=== PATIENT | female | born 1995 | race Caucasian/White ===

== ENCOUNTER 2017-12-14 20:08 | Emergency (ER) | payer OTHER | END 2017-12-15 01:02 | disposition home or self-care (01) | LOC: FTE 12-15 01:02 | DX: S82.434A Nondisplaced oblique fracture of shaft of right fibula, initial encounter for closed fracture (principal); S90.01XA Contusion of right ankle, initial encounter; J45.909 Unspecified asthma, uncomplicated; X58.XXXA Exposure to other specified factors, initial encounter; Y92.9 Unspecified place or not applicable | CPT/HCPCS: 29515; 73610-RT; 99283-25 ==

== ENCOUNTER 2018-09-27 05:38 | Day surgery (SDC) | payer OTHER ==
[2018-09-27] MEDS ORDERED: POLYMYXIN/BACITRACIN 1L IRRIG (07:12)
[2018-09-27] MEDS ORDERED: NEOMYC/POLYMYX/BACIT 30 GM OINT (07:12)
[2018-09-27] MEDS ORDERED: ROPIVACAINE 0.5 % 30 ML VIAL ×2 (07:12→10:43)
[2018-09-27] MEDS ORDERED: ROCURONIUM 50 MG INJ (07:25)
[2018-09-27] MEDS ORDERED: MEPERIDINE 100 MG INJ (07:25)
[2018-09-27] MEDS ORDERED: LIDOCAINE 2% (SDV) 5 ML INJ (07:25)
[2018-09-27] MEDS ORDERED: MIDAZOLAM 1 MG/ML 2 ML INJ (07:25)
[2018-09-27] MEDS ORDERED: PROPOFOL 200 MG INJ (07:25)
[2018-09-27] MEDS ORDERED: CEFAZOLIN 1 GM INJ (07:25)
[2018-09-27] MEDS ORDERED: METOCLOPRAMIDE 10 MG INJ (07:25)
[2018-09-27] MEDS ORDERED: SUCCINYLCHOLINE CHLORIDE 100 MG/5 ML SYG IV (07:25)
[2018-09-27] MEDS ORDERED: ONDANSETRON 4 MG INJ (07:25)
[2018-09-27] MEDS ORDERED: LACTATED RINGER'S 1,000 ML IV (07:30)
[2018-09-27] MEDS ORDERED: MEPERIDINE 25 MG INJ IV (09:30)
[2018-09-27] MEDS ORDERED: MIDAZOLAM 1 MG/ML 2 ML INJ IV (09:30)
[2018-09-27] MEDS ORDERED: DIPHENHYDRAMINE 50 MG INJ IV (09:30)
[2018-09-27] MEDS ORDERED: METOCLOPRAMIDE 10 MG INJ IV (09:30)
[2018-09-27] MEDS ORDERED: HYDROmorphONE 1 MG/5 ML IV SYRINGE IV ×3 (09:30)
[2018-09-27] MEDS ORDERED: ONDANSETRON 4 MG INJ IV (09:30)
[2018-09-27] MEDS ORDERED: OXYCODONE/ACETAMINOPHEN (5/325) TAB PO ×2 (09:30)
[2018-09-27] MEDS ORDERED: THROMBIN 5000 UNIT VIAL (09:59)
[2018-09-27] MEDS ORDERED: CA CHLORIDE 10% 10 ML SYRINGE (09:59)
[2018-09-27] MEDS: NEOMYC/POLYMYX/BACIT 30 GM OINT TOP (10:33)
[2018-09-27] MEDS: POLYMYXIN/BACITRACIN 1L IRRIG IRR (10:33)
[2018-09-27] MEDS: morphine 2 MG INJ IV (11:16)
[2018-09-27] MEDS: KETOROLAC 30 MG INJ IV (12:39)
== END 2018-09-27 13:30 | disposition home or self-care (01) ==
LOC: SDS 05:38
DX: S82.831K Other fracture of upper and lower end of right fibula, subsequent encounter for closed fracture with nonunion (principal); S93.431D Sprain of tibiofibular ligament of right ankle, subsequent encounter; M65.871 Other synovitis and tenosynovitis, right ankle and foot; X58.XXXD Exposure to other specified factors, subsequent encounter; J45.909 Unspecified asthma, uncomplicated
CPT/HCPCS: 27695; 73610-RT; 82306